=== PATIENT | female | born 1980 | race Caucasian/White ===

== ENCOUNTER 2016-10-02 09:52 | Outpatient (CLI) | payer OTHER ==
[~2016-10-02 09:52] MED LIST: ACID REDUCER150 MG PO; CORRECTOL100 MG PO; GLUCOPHAGE1000 MG PO; IBUPROFEN200 M1 PO; LABETALOL HCL100 MG PO; OXYCODONE/ACETA1 TA1 PO; PRENATAL1 TAB PO; PROBIOTI1 PO; TYLENOL325 MG PO; VITAMIN D-31000 UNIT PO; [UNRECOGNIZED DRUG - OTHER] PO
--- NOTE | 2016-10-02 10:24 | DIAGNOSTIC IMAGING REPORT ---
PROCEDURE: US OB 1ST TRIMESTER W/TRANSVAG INDICATION: VAGINAL BLEEDING, EARLY TECHNIQUE: Castro scale, color, and spectral Doppler transabdominal sonographic images of the first trimester gravid uterus were obtained. COMPARISON: OB ultrasound 04/23/2015 FINDINGS: TRANSABDOMINAL SCANS: The gravid uterus is anteverted in position and contains a fundal gestational sac with a moderate residual response. No perigestational hemorrhage. The cervix is closed. A pole with an average crown-rump length of 7 mm is present. There is detectable cardiac activity in the fetus in a rate of 120 beats per minute. Maternal ovaries appear normal with a corpus luteum cyst visualized on the right ovary. No free pelvic fluid. IMPRESSION: 1. Single living intrauterine with gestational age of 6 weeks and 3 days, and estimated due date of 05/25/2017 2. Closed cervix and no perigestational hemorrhage.
== END 2016-10-02 23:00 ==
LOC: US SRH 09:52
DX: Z34.91 Encounter for supervision of normal pregnancy, unspecified, first trimester (principal); Z3A.01 Less than 8 weeks gestation of pregnancy